=== PATIENT | male | born 1980 | race African-American/Black ===

== ENCOUNTER 2018-05-28 17:46 | Emergency (ER) | payer SELFPAY ==
[2018-05-28 19:14] LABS: ADD MAN DIFF? NO
[2018-05-28 19:16] LABS: BASO % 0 % (0-3); EOS # 0.2 x10^3/uL (0.0-0.7); EOS % 3 % (0-3); HEMATOCRIT 45.4 % (39.0-53.0); HEMOGLOBIN 15.5 g/dL (13.0-17.5); LYMPH # 3.2 x10^3/uL (1.0-4.8); LYMPH % 43 % (24-48); MEAN CORPUSCULAR HEMOGLOBIN 30 pg (25-35); MEAN CORPUSCULAR HGB CONC 34 g/dL (31-37); MEAN CORPUSCULAR VOLUME 87 fL (79-100); MONO # 0.6 x10^3/uL (0.0-1.1); MONO % 9 % (0-9); NEUT # 3.4 x10^3uL (1.8-7.7); NEUT % 45 % (31-73); PLATELET COUNT 228 x10^3/uL (140-400); RED BLOOD COUNT 5.21 x10^6/uL (4.30-5.70); RED CELL DISTRIBUTION WIDTH 16.6 % (11.5-14.5); WHITE BLOOD COUNT 7.5 x10^3/uL (4.0-11.0)
[2018-05-28] MEDS: DEXAMETHASONE SOD PHOS 4 MG/ML VIAL IV (19:21)
[2018-05-28] MEDS: KETOROLAC 30 MG/ML INJ. IV (19:22)
[2018-05-28] MEDS: METOCLOPRAMIDE HCL 10 MG/2 ML VIAL. IV (19:22)
[2018-05-28] MEDS: diphenhydrAMINE 50 MG/ML VIAL IVP (19:22)
[2018-05-28 19:33] LABS: ANION GAP 4 (6-14); BLOOD UREA NITROGEN 11 mg/dL (8-26); BUN/CREATININE RATIO 10 (6-20); CALCIUM 9.1 mg/dL (8.5-10.1); CARBON DIOXIDE 29 mmol/L (21-32); CHLORIDE 105 mmol/L (98-107); CREATININE 1.1 mg/dL (0.7-1.3); GFR 91.1; GLUCOSE 90 mg/dL (70-99); POTASSIUM 4.1 mmol/L (3.5-5.1); SODIUM 138 mmol/L (136-145)
[2018-05-28 19:44] LABS: ALBUMIN 3.4 g/dL (3.4-5.0); ALBUMIN/GLOBULIN RATIO 0.7 (1.0-1.7); ALK PHOS 69 U/L (46-116); ALT (SGPT) 32 U/L (16-63); AST (SGOT) 21 U/L (15-37); TOTAL BILIRUBIN 0.5 mg/dL (0.2-1.0)
== END 2018-05-28 20:15 | disposition home or self-care (01) ==
LOC: ER 20:15
DX: R51 Headache (principal); I10 Essential (primary) hypertension
CPT/HCPCS: 36415; 70450; 80053; 85025; 96374; 96375; 99285-25; J1100; J1200; J1885; J2765

== ENCOUNTER → 2020-01-04 | Outpatient (CLI) | payer OTHER ==
[2018-05-28 20:14] VITALS: BP 177/90
[~2020-01-04] MED LIST: BUTA1TAB23 PO
--- NOTE | 2020-01-04 17:24 | RAD ---
ANKLE RIGHT 2V History: Right ankle pain. Previous injury. COMPARISON: None FINDINGS: Old fracture deformity of the distal fibula. Fixation plate with proximal and distal screws transfix the site of the fracture. There is a fracture through the mid plate with slight anterior displacement of the distal plate relative to the proximal plate. 2 partially threaded cannulated medial malleolar screws are identified. Degenerative changes with spurring, particularly at the dorsal talonavicular joint. Degenerative changes at the tibiotalar joint with joint space narrowing. There is spurring at the lateral aspect of the tibial plafond. Mild medial downsloping of the tibiotalar joint may be due to chronic compressive fracture deformity of the tibial articular surface. No acute appearing fracture is identified. No aggressive bone destruction. Soft tissue calcifications in the lower leg appear to represent phleboliths. IMPRESSION: 1. Old fracture deformity of the distal fibula, with a fractured and slightly displaced fixation plate. 2. Degenerative changes at the tibiotalar joint with irregularity of the tibial plafond, which down slopes medially, presumably due to old traumatic deformity. 3. No evidence of acute fracture. Electronically signed by: James Olson MD (01/04/2020 5:21 PM) [id number]
== END | disposition home or self-care (01) ==
LOC: RAD 10:54
PROVIDERS: ATTEND Family Medicine
DX: S82.831D Other fracture of upper and lower end of right fibula, subsequent encounter for closed fracture with routine healing (principal); M19.071 Primary osteoarthritis, right ankle and foot; X58.XXXD Exposure to other specified factors, subsequent encounter
CPT/HCPCS: 73600

== ENCOUNTER → 2021-02-11 | Outpatient (CLI) | payer SELFPAY ==
[2018-05-28 20:14] VITALS: BP 177/90
--- NOTE | 2021-02-11 17:46 | RAD ---
INDICATION: Reason: LT LEG PAIN/SWELLING / Spl. Instructions: / History: COMPARISON: None. TECHNIQUE: Grayscale, color and doppler ultrasound images were obtained of the left lower extremity v enous vasculature. LEFT: No thrombus identified in the common femoral vein, femoral vein, popliteal vein or visualized calf ve ins. IMPRESSION: * No thrombus identified in deep venous system of the left lower extremity. Electronically signed by: Abel Quiroz MD (02/11/2021 5:44 PM) [id number]
== END ==
LOC: US 17:16
PROVIDERS: ATTEND Preventive Medicine Occupational Medicine
DX: R25.2 Cramp and spasm (principal); M79.605 Pain in left leg
CPT/HCPCS: 93971

== ENCOUNTER 2021-08-30 17:45 | Emergency (ER) | payer SELFPAY ==
[~2021-08-30] VITALS: Ht 188 cm; Wt 204.0 kg
[2021-08-30] MEDS ORDERED: NITROGLYCERIN SUBLINGUAL 0.4 MG BOTTLE OF 25. SL PRN (18:00)
[2021-08-30] MEDS ORDERED: ASPIRIN 325 MG TABLET PO ONE (18:00)
--- NOTE | 2021-08-30 18:02 | PHYS DOC ---
Past Medical History Past Medical History: Hypertension Past Surgical History: Other Additional Past Surgical Histo: bilat martins reconstruction, r ankle Smoking Status: Current Every Day Smoker Alcohol Use: Rarely Drug Use: Marijuana General Adult EDM: Chief Complaint: CHEST PAIN HPI: HPI: Patient is a 40 year old male who presents with sharp shooting left chest pain that has happened twice today. He states when he first arrived the pain was a 8/10, not the pain is a 2/10 and feels more like a "expanding fullness". States he had been cleaning the bottom of the vacuum of the first time when it happened. He states the second time they were in the car driving and then they came here. He states he was not stressed or anxious when this happened. He has a history of hypertension but takes no medication for it. He states he did try to take a Flexeril to see if that would help. He is also a smoker, anxiety, obese, right ankle surgery and has had a bilateral martins reconstruction. States he has never had this kind of pains in his chest before. Review of Systems: Review of Systems: Constitutional: Denies fever or chills. [] Eyes: Denies change in visual acuity. [] HENT: Denies nasal congestion or sore throat. [] Respiratory: Denies cough or +shortness of breath. [] Cardiovascular: +chest pain or denies edema. [] GI: Denies abdominal pain, +nausea, +vomiting, denies bloody stools or diarr hea. [] : Denies dysuria. [] Musculoskeletal: Denies back pain or joint pain. [] Integument: Denies rash. [] Neurologic: Denies headache, focal weakness or sensory changes. [] Endocrine: Denies polyuria or polydipsia. [] Lymphatic: Denies swollen glands. [] Psychiatric: Denies depression or anxiety. [] Heart Score: C/O Chest Pain: Yes HEART Score for Chest Pain: HEART Score for Chest Pain Response (Comments) Value History Slighlty/Non-Suspicious 0 ECG Normal 0 Age < 45 0 Risk Factors 1 or 2 Risk Factors 1 Troponin < Normal Limit 0 Total 1 Risk Factors: Risk Factors: DM, Current or recent (<one month) smoker, HTN, HLP, family history of CAD, obesity. Risk Scores: Score 0 - 3: 2.5% MACE over next 6 weeks - Discharge Home Score 4 - 6: 20.3% MACE over next 6 weeks - Admit for Clinical Observation Score 7 - 10: 72.7% MACE over next 6 weeks - Early Invasive Strategies Allergies: Allergies: Allergies Coded Allergies Type Severity Reaction Last Updated Verified No Known Drug Allergies 05/28/18 No Physical Exam: PE: Constitutional: Well developed, well nourished, no acute distress, non-toxic a ppearance. [] HENT: Normocephalic, atraumatic, bilateral external ears normal, oropharynx moist, no oral exudates, nose normal. [] Eyes: PERRLA, EOMI, conjunctiva normal, no discharge. [] Neck: Normal range of motion, no tenderness, supple, no stridor. [] Cardiovascular:Heart rate regular rhythm, no murmur [] Lungs & Thorax: Bilateral breath sounds clear to auscultation [] Abdomen: Bowel sounds normal, soft, no tenderness, no masses, no pulsatile masses. [] Skin: Warm, dry, no erythema, no rash. [] Back: No tenderness, no CVA tenderness. [] Extremities: No tenderness, no cyanosis, no clubbing, ROM intact, no edema. [] Neurologic: Alert and oriented X 3, normal motor function, normal sensory function, no focal deficits noted. [] Psychologic: Affect normal, judgement normal, mood normal. [] Normal Physical Exam EKG: EK and read by Dr. Barreto is sinus rhythm and no STEMI Radiology/Procedures: Radiology/Procedures: [] Impression: [facility] [address] [place], [place] [id number] IMAGING REPORT Signed PATIENT: CRISPIN NARANJO AACCOUNT: [id number] : 1980 LOCATION: ER AGE: 40 SEX: M EXAM STATUS: PRE ER ORD. PHYSICIAN: ARTHUR JOSEPH APRN REASON: CHEST PAIN PROCEDURE: PORTABLE CHEST 1V Single view chest dated 08/30/2021 6:24 PM: COMPARISON: 08/31/2012 Clinical Indication: Chest pain. Findings: Single upright portable exam of the chest was performed. Heart size and mediastinal contours are within normal limits. Lungs are clear. No consolidation or pleural effusion. No pneumothorax. Mildly prominent linear markings at both lung bases, likely atelectasis. IMPRESSION: No acute radiographic abnormality. Electronically signed by: James George MD (08/30/2021 6:25 PM) [facility] [place] DICTATED and SIGNED BY: JAMES GEORGE MD DATE: 08/30/21 [id number] 0 Course & Med Decision Making: Course & Med Decision Making Pertinent Labs and Imaging studies reviewed. (See chart for details) See HPI. Alert and oriented x4. Ambulatory steady gait. Speaks in full clear sentences. Morbidly obese. Skin pink warm and dry. No peripheral edema. Chest pain cannot be reproduced with palpation or movement. Blood work unremarkable. Patient was given a couple of nitroglycerin without any change in pain. Pain went away on its own. Patient fell asleep for a while . Patient awakened and was feeling better. Troponin x2 is negative. Patient discharged home and to follow-up with primary care provider. [] Dragon Disclaimer: Dragjoaquín Disclaimer: This electronic medical record was generated, in whole or in part, using a voice recognition dictation system. Departure Departure Impression: Primary Impression: Chest pain in adult Disposition: 01 HOME / SELF CARE / HOMELESS Admitting Physician: HIMS Condition: STABLE Referrals: NO PCP (PCP) ZARI MCFARLANE MD Patient Instructions: Chest Pain (Nonspecific), Hypertension Additional Instructions: Follow-up with primary care provider soon as possible. Drink plenty of fluids. If chest pain returns return to the emergency room. Start keeping a diary of your blood pressures. I would take your blood pressures 3 times a week once a day and write them down and then take them to your primary care appointment. ARTHUR JOSEPH APRN Aug 30, 2021 18:01
[2021-08-30 18:04] LABS: BASO # 0.1 x10^3/uL (0.0-0.2); BASO % 1 % (0-3); EOS # 0.1 x10^3/uL (0.0-0.7); EOS % 2 % (0-3); HEMATOCRIT 45.1 % (39.0-53.0); HEMOGLOBIN 15.1 g/dL (13.0-17.5); LYMPH # 3.1 x10^3/uL (1.0-4.8); LYMPH % 45 % (24-48); MEAN CORPUSCULAR HEMOGLOBIN 29 pg (25-35); MEAN CORPUSCULAR HGB CONC 33 g/dL (31-37); MEAN CORPUSCULAR VOLUME 86 fL (79-100); MONO # 0.7 x10^3/uL (0.0-1.1); MONO % 10 % (0-9); NEUT # 2.8 x10^3/uL (1.8-7.7); NEUT % 41 % (31-73); PLATELET COUNT 241 x10^3/uL (140-400); RED BLOOD COUNT 5.25 x10^6/uL (4.30-5.70); RED CELL DISTRIBUTION WIDTH 16.4 % (11.5-14.5); WHITE BLOOD COUNT 6.8 x10^3/uL (4.0-11.0)
[2021-08-30 18:13] LABS: CALCIUM 8.9 mg/dL (8.5-10.1); CREATININE 1.1 mg/dL (0.7-1.3); GFR 89.7; POTASSIUM 4.5 mmol/L (3.5-5.1)
[2021-08-30 18:18] LABS: ALBUMIN 3.6 g/dL (3.4-5.0); ALBUMIN/GLOBULIN RATIO 0.8 (1.0-1.7); TOTAL BILIRUBIN 0.6 mg/dL (0.2-1.0); TOTAL PROTEIN 8.2 g/dL (6.4-8.2)
--- NOTE | 2021-08-30 18:27 | RAD ---
Single view chest dated 08/30/2021 6:24 PM: COMPARISON: 08/31/2012 Clinical Indication: Chest pain. Findings: Single upright portable exam of the chest was performed. Heart size and mediastinal contours are with in normal limits. Lungs are clear. No consolidation or pleural effusion. No pneumothorax. Mildly prom inent linear markings at both lung bases, likely atelectasis. IMPRESSION: No acute radiographic abnormality. Electronically signed by: James George MD (08/30/2021 6:25 PM) RUTH
[2021-08-30 18:37] LABS: BILIRUBIN,URINE NEGATIVE (NEG); CLARITY,URINE CLEAR; COLOR,URINE AMBER; NITRITE,URINE NEGATIVE (NEG); PROTEIN,URINE NEGATIVE (NEG-TRACE); UROBILINOGEN,URINE 0.2 mg/dL (0.2 mg/dL)
[2021-08-30 18:47] LABS: BACTERIA,URINE 0 /HPF (0-FEW); RBC,URINE 0 /HPF (0-2); WBC,URINE OCC /HPF (0-4)
--- NOTE | 2021-08-30 18:54 | EKG ---
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
[2021-08-30 21:14] VITALS: BP 155/70
== END 2021-08-30 21:41 | disposition home or self-care (01) ==
LOC: ER 17:45
DX: R07.89 Other chest pain (principal); I10 Essential (primary) hypertension; F17.200 Nicotine dependence, unspecified, uncomplicated
CPT/HCPCS: 36415; 71045; 80053; 81001; 83690; 83735; 83880; 84484; 85025; 85379; 93005; 99285-25